=== PATIENT | male | born 1965 | race Caucasian/White ===

== ENCOUNTER → 2022-01-14 | Outpatient (CLI) | payer OTHER | LOC: M SLEEP 20:00 | PROVIDERS: ATTEND Nurse Practitioner Adult Health | DX: G47.33 Obstructive sleep apnea (adult) (pediatric) (principal) ==

== ENCOUNTER → 2022-01-31 | Outpatient (CLI) | payer OTHER | LOC: M RAD 06:35 | PROVIDERS: ATTEND Nurse Practitioner Adult Health | DX: Z87.891 Personal history of nicotine dependence (principal); R91.8 Other nonspecific abnormal finding of lung field ==

== ENCOUNTER → 2022-02-10 | Outpatient (CLI) | payer OTHER ==
[~2022-02-10] MED LIST: METHACHOLINE KIT (J7674) INH ONE
== END ==
LOC: M CARPUL 07:34
PROVIDERS: ATTEND Nurse Practitioner Adult Health
DX: R06.02 Shortness of breath (principal)

== ENCOUNTER → 2022-03-30 | Outpatient (CLI) | payer OTHER | LOC: M SLEEP 20:00 | PROVIDERS: ATTEND Nurse Practitioner Adult Health | DX: G47.33 Obstructive sleep apnea (adult) (pediatric) (principal) ==

== ENCOUNTER → 2022-08-17 | Outpatient (CLI) | payer OTHER | LOC: M PLAIMG 07:46 | PROVIDERS: ATTEND Nurse Practitioner Adult Health | DX: R91.8 Other nonspecific abnormal finding of lung field (principal) ==

== ENCOUNTER 2025-03-25 16:15 | Inpatient (IN) | payer OTHER ==
[~2025-03-25] VITALS: Ht 167.6 cm; Wt 76.4 kg
[2025-03-25] MEDS: MORPHINE 4 MG/ML 1 ML VIAL IV PRN (16:50)
[2025-03-25] MEDS ORDERED: ISOVUE-370 76% 100 ML VIAL As Ordered ONE (16:55)
[2025-03-25 17:14] LABS: BASO # 0.0 10^3/uL (0.0-0.2); BASO % 0.6 % (0.0-1.0); EOS # 0.0 10^3/uL (0.0-0.5); EOS % 0.0 % (0.0-3.0); LYMPH # 1.0 10^3/uL (1.5-5.0); LYMPH % 15.5 % (24.0-44.0); MONO # 0.7 10^3/uL (0.0-0.8); MONO % 10.1 % (2.0-8.0); NEUTROPHILS # 4.9 10^3/uL (1.5-8.5); NEUTROPHILS % 73.3 % (36.0-66.0); PLATELET COUNT, AUTOMATED 202 10^3/uL (150-450)
[2025-03-25 17:21] LABS: APPEARANCE, URINE CLEAR (CLEAR); BACTERIA, URINE AUTO NEGATIVE (NEGATIVE); BILIRUBIN, URINE AUTO NEGATIVE (NEGATIVE); BLOOD, URINE BLOOD NEGATIVE (NEGATIVE); GLUCOSE, URINE (UA) AUTO NEGATIVE (NEGATIVE); KETONE, URINE AUTO 1+ mg/dL (NEGATIVE); LEUKOCYTE ESTERASE, URINE AUTO NEGATIVE (NEGATIVE); MUCUS, URINE SMALL (NEGATIVE); NITRITE, URINE AUTO NEGATIVE (NEGATIVE); PROTEIN, URINE AUTO 1+ mg/dL (NEGATIVE); RBC, URINE AUTO 1 /HPF (0-3); SPECIFIC GRAVITY URINE AUTO 1.017 (1.002-1.035); SQUAMOUS EPITHELIAL CELL UR AU 0 /HPF (0-6); UROBILINOGEN, URINE AUTO 0.2 mg/dL (0.0-2.0); WBC, URINE AUTO 0 /HPF (0-3)
[2025-03-25 17:33] LABS: INR 0.91
[2025-03-25 17:44] LABS: AMPHETAMINES LEVEL URINE NEGATIVE (NEGATIVE); BARBITURATES URINE NEGATIVE (NEGATIVE); BENZODIAZEPINES URINE NEGATIVE (NEGATIVE); CANNABINOIDS URINE NEGATIVE (NEGATIVE); COCAINE METABOLITE URINE NEGATIVE (NEGATIVE); METHADONE URINE NEGATIVE (NEGATIVE); PHENCYCLIDINE URINE NEGATIVE (NEGATIVE)
[2025-03-25 17:45] LABS: ETHYL ALCOHOL (ETHANOL) < 0.003 % (0.000-0.010)
[2025-03-25 17:46] LABS: ALT/SGPT 115 U/L (7.0-40); AST/SGOT 152 U/L (<34)
[2025-03-25 18:08] LABS: OPIATES URINE POSITIVE (NEGATIVE)
[2025-03-25] MEDS ORDERED: HOME MED LIST COMPLETE! XX SCH (20:15)
[2025-03-25] MEDS: ONDANSETRON 4MG 2ML VIAL IV ONE (20:40)
[2025-03-25] MEDS ORDERED: ONDANSETRON 4MG 2ML VIAL IV PRN (20:55)
[2025-03-25 22:40] LABS: CPK CREATINE PHOSPHOKINASE 1272 U/L (46-171)
[2025-03-25] MEDS: MULTIVITAMIN -ADULT INJECTION 10 ML, THIAMINE INJection 100 MG, FOLIC ACID 1 MG in NS (... IV ONE (22:44)
[2025-03-25] MEDS: LIDOCAINE 5% PATCH TD ONE (22:44)
[2025-03-26] VITALS (20 sets, daily range): BP systolic 145–190; BP diastolic 76–99; TEMP 97.2–99.2; O2SAT 92–99
[2025-03-26] MEDS: MORPHINE 4 MG/ML 1 ML VIAL IV PRN (04:05)
[2025-03-26 05:00] LABS: BASO # 0.0 10^3/uL (0.0-0.2); BASO % 0.4 % (0.0-1.0); EOS # 0.0 10^3/uL (0.0-0.5); EOS % 0.1 % (0.0-3.0); LYMPH # 1.0 10^3/uL (1.5-5.0); LYMPH % 14.5 % (24.0-44.0); MONO # 0.8 10^3/uL (0.0-0.8); MONO % 10.9 % (2.0-8.0); NEUTROPHILS # 5.1 10^3/uL (1.5-8.5); NEUTROPHILS % 74.0 % (36.0-66.0); PLATELET COUNT, AUTOMATED 168 10^3/uL (150-450)
[2025-03-26 05:33] LABS: CPK CREATINE PHOSPHOKINASE 848 U/L (46-171)
[2025-03-26 05:36] LABS: ALT/SGPT 92 U/L (7.0-40); AST/SGOT 95 U/L (<34); CALCIUM LEVEL 8.5 MG/DL (8.5-10.1); CARBON DIOXIDE LEVEL 27 MMOL/L (20-31); CHLORIDE LEVEL 102 MMOL/L (98-107); CREATININE FOR GFR 0.74 MG/DL (0.70-1.30); GLOMERULAR FILTRATION RATE > 90.0 (>56); MAGNESIUM LEVEL 1.9 MG/DL (1.8-2.4); POTASSIUM SERUM 3.9 MMOL/L (3.5-5.1); SODIUM LEVEL 141 MMOL/L (136-145)
[2025-03-26] MEDS: THIAMINE 100 MG TAB PO SCH (08:24)
[2025-03-26] MEDS: FOLIC ACID 1 MG TAB PO SCH (08:24)
[2025-03-26] MEDS: MULTIVITAMINS/MINERALS THERAP 1 TAB PO SCH (08:24)
[2025-03-26] MEDS: NS (Normal Saline) 0.9% 1,000 ML IV SCH (11:13)
[2025-03-26] MEDS: ENOXAPARIN 40 MG/0.4 ML SYRINGE (J1650 PER 10MG) SC SCH (11:15)
[2025-03-26] MEDS: PERCOCET 5MG/325MG TAB PO PRN (23:50)
[2025-03-27] VITALS (7 sets, daily range): BP systolic 154–177; BP diastolic 93–130; TEMP 98.7–99.1; O2SAT 92–98
[2025-03-27] MEDS: PERCOCET 5MG/325MG TAB PO PRN (05:29)
[2025-03-27] MEDS ORDERED: SENN8.6T28 PO (13:30)
[2025-03-27] MEDS ORDERED: PERCOCET PO (13:30)
[2025-03-27] MEDS ORDERED: THIA100TA PO (13:30)
[2025-03-27] MEDS ORDERED: THERTAB19 PO (13:30)
[2025-03-27] MEDS ORDERED: FOLI1TAB11 PO (13:30)
[2025-03-29] MEDS ORDERED: THIAMINE 100 MG TAB PO SCH (09:00)
== END 2025-03-27 14:55 | disposition home health service (06) | DRG 563 ==
LOC: EDBD 16:15 → M ED 16:15 → M ED INP 20:54 → M ICU 03-26 01:18
PROVIDERS: ADMIT Internal Medicine; ATTEND Student in an Organized Health Care Education/Training Program
DX: S82.432A Displaced oblique fracture of shaft of left fibula, initial encounter for closed fracture (principal); S22.41XA Multiple fractures of ribs, right side, initial encounter for closed fracture; M62.82 Rhabdomyolysis; S82.65XA Nondisplaced fracture of lateral malleolus of left fibula, initial encounter for closed fracture; V86.55XA Driver of 3- or 4- wheeled all-terrain vehicle (ATV) injured in nontraffic accident, initial encounter; W22.8XXA Striking against or struck by other objects, initial encounter; Y93.89 Activity, other specified; Y99.8 Other external cause status; R74.01 Elevation of levels of liver transaminase levels; F10.90 Alcohol use, unspecified, uncomplicated